=== PATIENT | male | born 1965 | race Caucasian/White ===

== ENCOUNTER 2020-10-06 08:07 | Outpatient (RCR) | payer BC, SELFPAY | END 2020-10-23 15:15 | disposition home or self-care (01) | LOC: HO.WCC 08:07 | PROVIDERS: PCP Family Medicine; Visit Provider Physician Assistant | DX: E11.622 Type 2 diabetes mellitus with other skin ulcer (principal); L89.893 Pressure ulcer of other site, stage 3; E11.40 Type 2 diabetes mellitus with diabetic neuropathy, unspecified; E11.610 Type 2 diabetes mellitus with diabetic neuropathic arthropathy; R60.9 Edema, unspecified; I10 Essential (primary) hypertension; Z79.4 Long term (current) use of insulin; Z87.891 Personal history of nicotine dependence | CPT/HCPCS: 11042; 29580; 99212 ==

== ENCOUNTER 2022-06-04 13:54 | Outpatient (RCR) | payer BC, SELFPAY ==
[2022-07-08 13:34] LABS: MANUAL DIFF FLAG NO
[2022-07-08 14:01] LABS: Basophils Absolute Auto 0.1 X10*3/uL (0.0-0.2); Basophils Percent Auto 1.1 % (0-2); Eosinophils Absolute Auto 0.3 X10*3/uL (0.0-0.4); Eosinophils Percent Auto 3.6 % (0-4); Hematocrit 42.9 % (42.0-52.0); Hemoglobin 14.4 g/dl (14.0-18.0); Imm Gran Abs Auto 0.06 X10*3/uL (0.00-0.03); Imm Gran Pct Auto 0.6 % (0.0-0.4); Lymphocytes Absolute Auto 2.5 X10*3/uL (1.2-4.9); Lymphocytes Percent Auto 26.2 % (20-40); Mean Corpuscular HGB Conc 33.6 g/dl (31.0-36.0); Mean Corpuscular Hemoglobin 29.1 pg (27.0-33.0); Mean Corpuscular Volume 86.8 fL (80.0-98.0); Mean Platelet Volume 9.9 fL (9.4-12.4); Monocytes Absolute Auto 0.7 X10*3/uL (0.1-1.2); Monocytes Percent Auto 7.8 % (2-11); Neutrophils Absolute Auto 5.8 x10*3/uL (2.0-8.3); Neutrophils Percent Auto 60.7 % (45-73); Platelet Count 266 X10*3/uL (160-400); Red Blood Count 4.94 X10*6/uL (4.60-5.80); Red Cell Distribution Width 13.5 % (11.0-16.0); White Blood Count 9.5 X10*3/uL (4.8-10.8)
[2022-07-08 14:17] LABS: Anion Gap 18 (12-20); Blood Urea Nitrogen 13 mg/dL (9-16); C Reactive Protein 1.51 mg/dL (< or = 0.50); Calcium 9.3 mg/dL (8.4-10.2); Carbon Dioxide 22 mmol/L (22-29); Chloride 100 mmol/L (96-108); Estimated Glomerular Filt Rate > 60; Glucose Random 267 mg/dL (60-115); Potassium 4.3 mmol/L (3.3-5.1); Sodium 136 mmol/L (135-145)
[2022-07-08 14:40] LABS: Erythrocyte Sedimentation Rate 12 MM/HR (0-15)
== END 2022-08-24 14:12 | disposition home or self-care (01) ==
LOC: HO.WCC 13:54
PROVIDERS: PCP Family Medicine; Visit Provider Physician Assistant
DX: E11.621 Type 2 diabetes mellitus with foot ulcer (principal); L97.522 Non-pressure chronic ulcer of other part of left foot with fat layer exposed; E11.40 Type 2 diabetes mellitus with diabetic neuropathy, unspecified; I10 Essential (primary) hypertension; L84 Corns and callosities; F12.90 Cannabis use, unspecified, uncomplicated; Z87.891 Personal history of nicotine dependence
CPT/HCPCS: 11042; 36415; 80048; 84134; 85025; 85652; 86140; 97597; 99212

== ENCOUNTER 2023-06-06 14:12 | Outpatient (RCR) | payer BC, SELFPAY ==
--- NOTE | ~2023-06-06 | XR_ITS ---
EXAMINATION: XR TOES, LEFT CLINICAL INFORMATION: Left fifth toe nonhealing wound, rule out osteomyelitis COMPARISON: None available. TECHNIQUE: 3 views of the left fifth toe FINDINGS: The bones are demineralized. Extensive vascular calcifications. Moderate degenerative changes in the toes and in the first metatarsophalangeal joint. External wrapping limits detailed evaluation of the fifth toe. No displaced fracture of the fifth toe. XR/XR toe LT min 2V IMPRESSION: Bones are demineralized. Moderate degenerative changes in the fifth toe. MRI recommended for further evaluation based on the level of clinical concern for osteomyelitis.
== END 2023-06-28 16:10 | disposition home or self-care (01) ==
LOC: HO.WCC 14:12
PROVIDERS: PCP Family Medicine; Visit Provider Physician Assistant
DX: E11.621 Type 2 diabetes mellitus with foot ulcer (principal); L97.522 Non-pressure chronic ulcer of other part of left foot with fat layer exposed; E11.40 Type 2 diabetes mellitus with diabetic neuropathy, unspecified; L84 Corns and callosities; I10 Essential (primary) hypertension; Z79.2 Long term (current) use of antibiotics; Z87.891 Personal history of nicotine dependence
CPT/HCPCS: 11042; 73660; 99212

== ENCOUNTER 2023-08-02 17:01 | Outpatient (REF) | payer BC, SELFPAY ==
--- NOTE | ~2023-08-02 | MR_ITS ---
EXAMINATION: MRI FOOT WITHOUT AND WITH CONTRAST, LEFT CLINICAL INFORMATION: Wound, evaluate for osteomyelitis. COMPARISON: Radiographs 06/13/2023. TECHNIQUE: MRI without and with intravenous administration of 10 mL of Gadavist is performed on the left foot. FINDINGS: Probable shallow ulcer at the lateral aspect of the 5th toe with mild edema/enhancement of the subcutaneous fat extending dorsally which may represent cellulitis. There is no abscess. There are no underlying cortical or marrow changes to suggest osteomyelitis. Nonspecific subcutaneous edema along the dorsum of the foot. These fatty atrophy of the intrinsic muscles. Mild degenerative changes of the 1st MTP joint and 1st interphalangeal joint. No acute osseous abnormality. MR/MR foot LT wo/w con IMPRESSION: Probable shallow ulcer at the lateral aspect of the 5th toe with mild cellulitis. No abscess. No evidence of osteomyelitis.
[2023-08-02] MEDS: gadobutroL 10 ML VIAL IVPUSH (18:00)
== END 2023-08-02 17:02 | disposition home or self-care (01) ==
LOC: HO.MRI 17:01
PROVIDERS: PCP Family Medicine; Visit Provider Physician Assistant
DX: L97.522 Non-pressure chronic ulcer of other part of left foot with fat layer exposed (principal)
CPT/HCPCS: 73720; A9585

== ENCOUNTER 2024-04-20 06:44 | Emergency (ER) | payer BC, SELFPAY ==
--- NOTE | ~2024-04-20 | XR_ITS ---
EXAMINATION: XR LEFT FOOT XR LEFT TIBIA/FIBULA CLINICAL INFORMATION: Pain. Evaluate for osteomyelitis. COMPARISON: 08/02/2023 TECHNIQUE: AP, lateral and oblique views of the left foot were obtained. AP and lateral views of the left tibia and fibula were obtained. FINDINGS: Left foot: Decreased bone mineralization. Diffuse interphalangeal joint space narrowing. Mild degenerative changes of the first MTP joint. No displaced fracture. No destructive bone changes or periosteal reaction. Small posterior and plantar calcaneal spurs. Vascular calcifications are present. Left tibia/fibula: There is normal alignment. No displaced fracture. No destructive bone changes. There is soft tissue swelling and edema of the medial lower leg. XR/XR foot LT min 3V IMPRESSION: No acute abnormality.
--- NOTE | ~2024-04-20 | XR_ITS ---
EXAMINATION: XR LEFT FOOT XR LEFT TIBIA/FIBULA CLINICAL INFORMATION: Pain. Evaluate for osteomyelitis. COMPARISON: 08/02/2023 TECHNIQUE: AP, lateral and oblique views of the left foot were obtained. AP and lateral views of the left tibia and fibula were obtained. FINDINGS: Left foot: Decreased bone mineralization. Diffuse interphalangeal joint space narrowing. Mild degenerative changes of the first MTP joint. No displaced fracture. No destructive bone changes or periosteal reaction. Small posterior and plantar calcaneal spurs. Vascular calcifications are present. Left tibia/fibula: There is normal alignment. No displaced fracture. No destructive bone changes. There is soft tissue swelling and edema of the medial lower leg. XR/XR tibia fibula LT 2V IMPRESSION: No acute abnormality.
[2024-04-20 07:03] VITALS: BP 145/71; PULSE 93; RESP 18; TEMP 36.9; O2SAT 95; BMI 41.2
[2024-04-20 07:39] LABS: MANUAL DIFF FLAG NO
[2024-04-20 07:41] LABS: Basophils Absolute Auto 0.1 X10*3/uL (0.0-0.2); Basophils Percent Auto 0.5 % (0-2); Eosinophils Absolute Auto 0.1 X10*3/uL (0.0-0.4); Eosinophils Percent Auto 0.4 % (0-4); Hematocrit 39.3 % (42.0-52.0); Hemoglobin 13.5 g/dl (14.0-18.0); Imm Gran Abs Auto 0.05 X10*3/uL (0.00-0.03); Imm Gran Pct Auto 0.4 % (0.0-0.4); Lymphocytes Absolute Auto 1.7 X10*3/uL (1.2-4.9); Lymphocytes Percent Auto 13.7 % (20-40); Mean Corpuscular HGB Conc 34.4 g/dl (31.0-36.0); Mean Corpuscular Hemoglobin 29.7 pg (27.0-33.0); Mean Corpuscular Volume 86.6 fL (80.0-98.0); Mean Platelet Volume 9.6 fL (9.4-12.4); Monocytes Absolute Auto 1.2 X10*3/uL (0.1-1.2); Neutrophils Absolute Auto 9.2 x10*3/uL (2.0-8.3); Platelet Count 226 X10*3/uL (160-400); Red Blood Count 4.54 X10*6/uL (4.60-5.80); Red Cell Distribution Width 13.6 % (11.0-16.0); White Blood Count 12.3 X10*3/uL (4.8-10.8)
--- NOTE | 2024-04-20 07:54 | ED.GENADULT ---
HPI - General Adult General Chief complaint: Wound/Laceration Stated complaint: left foot laceration/diabetic has fever Time Seen by Provider: 04/20/24 07:09 Source: patient, RN notes reviewed and old records reviewed Mode of arrival: ambulatory History of Present Illness ED Provider: Amber Michaels PA-C HPI narrative: 58-year-old male with past medical history of diabetes presenting to the ED complaining of left great toe wound x 2 days and fever T-max 102.5 degrees last night. Patient believes callus/blister popped open while in his pool a few days ago. Admits to taking antipyretics yesterday, denies taking anything today. Also reports LLE increasing redness. Denies chills, SOB, CP, calf pain, known injury/trauma or fall Related Data Previous Rx's ?Medication ?Instructions ?Recorded cephalexin 500 mg capsule 500 mg PO QID 7 days #28 caps 04/20/24 doxycycline hyclate 100 mg tablet 100 mg PO BID 7 days #14 tabs 04/20/24 Allergies Allergy/AdvReac Type Severity Reaction Status Date / Time No Known Allergies Allergy Verified 04/20/24 07:04 [No Known Allergies*] Review of Systems Review of Systems: Constitutional: No Fever, No Chills ENT/Mouth: No Ear Pain, No Nasal Congestion, No sore throat, No Rhinorrhea, No Swallowing Difficulty Cardiovascular: No Chest Pain, No SOB Respiratory: No Cough Gastrointestinal: No Nausea, No Vomiting, No Abdominal pain Musculoskeletal: + joint pain, No Myalgias, No Joint Swelling Skin: + Skin Lesions, No rash Neuro: No Weakness, No Numbness, No Paresthesias Yes all other systems are reviewed and are negative Constitutional: Constitutional: Reports as per [facility] Past Medical History Attestation statement: The following information was validated with the patient. Source: old records reviewed Social History Social History Advance Directives: No Advance Directives Information Provided: Yes Physical Exam ED Vital Signs: Vital Signs - 24 hr 04/20/24 07:03 04/20/24 09:00 Temperature 98.5 F 98.5 F Pulse Rate 93 93 Respiratory Rate 18 18 Blood Pressure 145/71 H 145/71 H Pulse Oximetry 95 95 Oxygen Delivery Method Room Air Room Air BMI result Body Mass Index 41.2 Const General: cooperative, healthy appearing and no acute distress Orientation/consciousness: patient oriented x3 Limitations: no limitations HENMT Head: Yes normal to inspection and Yes atraumatic Ears: hearing grossly normal bilaterally General nose exam: Normal external nose present Face and sinus: Yes normal facial exam Eyes General: appearance normal, both eyes and all related structures EOM: EOMs intact bilaterally Neck Neck: Yes normal visual inspection and Yes no meningeal signs Resp Effort & Inspection: normal respiratory effort and no respiratory distress Cardio Rate: regular rate GI Inspection: Yes normal to inspection Palpation (GI): Soft to palpation, nontender, no guarding and not rigid General: Yes no CVA tenderness Back/Spine/Pelvis Back: no CVA tenderness Skin Rashes: no rashes Neuro General: patient oriented x3, tone normal and no meningeal signs Cranial nerves: Yes CN's II-XII intact bilaterally Gait exam (Neuro): Normal gait present Extrem Other: Please refer to images above. Open wound to left great toe plantar aspect. appears split open skin from callus. No active drainage, fluctuance or induration. +LLE erythema and warmth. Mildly tender. No streaking. Not circumferential Course Course Course Narrative: -0759--mild leukocytosis of 12.3. H and H is stable -glucose 286, no anion gap 0932--XR tibia fibula LT 2V IMPRESSION: No acute abnormality. XR foot LT min 3V IMPRESSION: No acute abnormality. Results discussed with patient including worrisome signs and symptoms and strict return precautions, and when to return to the emergency department. They verbalized understanding and feel safe for discharge at this time. Medical Decision Making Medical Decision Making MDM Narrative: 58-year-old male with past medical history of diabetes presenting to the ED complaining of left great toe wound x 2 days and fever T-max 102.5 degrees last night. On exam vital signs stable, NAD, nontoxic appearing please refer to images above. + open wound to left great toe with BRADLEY erythema/warmth consistent with cellulitis. No crepitus. Lower suspicion for osteomyelitis, DVT, abscess. Low suspicion for severe sepsis Plan: Labs, x-ray Please refer to course for remaining clinical decision making, interpretation of labs/imaging results, and discussions with consultants and/or family members. Differential Diagnosis Differential Diagnoses: The differential diagnosis associated with the presentation includes As above Admission/Observation Consideration of admission/observation: Escalation of care including admission/observation considered Lab Data MDM Lab Attestation statement: I reviewed the patient's lab results. 04/20/24 07:35 04/20/24 07:35 Labs: Lab Results 04/20/24 Range/Units 07:35 WBC 12.3 H (4.8-10.8) X10*3/uL RBC 4.54 L (4.60-5.80) X10*6/uL Hgb 13.5 L (14.0-18.0) g/dl Hct 39.3 L (42.0-52.0) % MCV 86.6 (80.0-98.0) fL MCH 29.7 (27.0-33.0) pg MCHC 34.4 (31.0-36.0) g/dl RDW 13.6 (11.0-16.0) % Plt Count 226 (160-400) X10*3/uL MPV 9.6 (9.4-12.4) fL Immature Gran % (Auto) 0.4 (0.0-0.4) % Neut % (Auto) 75.0 H (45-73) % Lymph % (Auto) 13.7 L (20-40) % Mcculloch % (Auto) 10.0 (2-11) % Eos % (Auto) 0.4 (0-4) % Baso % (Auto) 0.5 (0-2) % Lymph # (Auto) 1.7 (1.2-4.9) X10*3/uL Mcculloch # (Auto) 1.2 (0.1-1.2) X10*3/uL Eos # (Auto) 0.1 (0.0-0.4) X10*3/uL Baso # (Auto) 0.1 (0.0-0.2) X10*3/uL Abs Immat Gran (auto) 0.05 H (0.00-0.03) X10*3/uL Absolute Neuts (auto) 9.2 H (2.0-8.3) x10*3/uL Absolute Nucleated RBC 0.000 (0.0-0.012) X10*3/uL Nucleated RBC % (auto) 0.0 (0.0-0.2) /100WBC Sodium 138 (135-145) mmol/L Potassium 4.7 (3.3-5.1) mmol/L Chloride 101 (96-108) mmol/L Carbon Dioxide 27 (22-29) mmol/L Anion Gap 15 (12-20) BUN 22 H (9-16) mg/dL Creatinine 1.02 (0.5-1.4) mg/dL Estim Creat Clear Calc 110.2 Estimated GFR > 60 Random Glucose 286 H (60-115) mg/dL Calcium 9.9 D (8.4-10.2) mg/dL Total Bilirubin 0.7 (0.0-1.0) mg/dL Direct Bilirubin 0.3 (0.0-0.5) mg/dL AST 13 (5-37) U/L ALT 19 (0-40) U/L Alkaline Phosphatase 79 (39-117) U/L B-Natriuretic Peptide 21 (<100) pg/mL Total Protein 6.9 (6.5-8.0) g/dL Albumin 3.8 (3.5-5.0) g/dL Independent Interpretation I performed an independent interpretation of an: Plain X-Ray Radiology Impression Discussion of test interpretation with radiology: I have reviewed the radiologist's reading. External Record Review External record reviewed: Inpatient record, Office record, Outpatient record, Prior outpatient labs, Prior outpatient radiology, Primary care record and Outside ED record Tests considered The following testing was considered but not selected: As above Prescription Management I considered prescription management with: Pain Medication and Antibiotic Chronic Conditions Patient?s care impacted by: Diabetes Discharge Plan Discharge Clinical Impression: Cellulitis Patient Disposition: Home, Self-Care Instructions: Cellulitis (DC) Additional Instructions: Your blood work and x-rays were reassuring Doxycycline and Keflex antibiotics please take as prescribed Please take Tylenol Motrin as needed for pain Please keep a close eye on the area if becomes red, increasing in size, you have persistent fever speech return to the ED immediately Please be re-evaluated in 3 days Follow-up with wound care Prescriptions: New cephalexin 500 mg capsule 500 mg PO QID 7 Days Qty: 28 0RF doxycycline hyclate 100 mg tablet 100 mg PO BID 7 Days Qty: 14 0RF Referrals: [facility] [place] Wound Care Management [Provider Group] Rachel Alberto MD [Primary Care Provider] - 3 days Stand Alone Forms: Work/School Release Interventions: ED Discharge Assessment Last Done: 04/20/24 09:00 Discharge Date/Time: 04/20/24 09:01 Print Language: Macedonian
[2024-04-20 07:58] LABS: Alanine Aminotransferase 19 U/L (0-40); Albumin Level 3.8 g/dL (3.5-5.0); Alkaline Phosphatase 79 U/L (39-117); Anion Gap 15 (12-20); Aspartate Amino Transferase 13 U/L (5-37); Bilirubin Direct 0.3 mg/dL (0.0-0.5); Bilirubin Total 0.7 mg/dL (0.0-1.0); Blood Urea Nitrogen 22 mg/dL (9-16); Calcium 9.9 mg/dL (8.4-10.2); Carbon Dioxide 27 mmol/L (22-29); Chloride 101 mmol/L (96-108); Creatinine Clr Calc Pharmacy 110.2; Estimated Glomerular Filt Rate > 60; Glucose Random 286 mg/dL (60-115); Potassium 4.7 mmol/L (3.3-5.1); Sodium 138 mmol/L (135-145); Total Protein 6.9 g/dL (6.5-8.0)
[2024-04-20 08:01] LABS: B Type Natriuretic Peptide 21 pg/mL (<100)
[2024-04-20 09:00] VITALS: BP 145/71; PULSE 93; RESP 18; TEMP 36.9; O2SAT 95
== END 2024-04-20 09:01 | disposition home or self-care (01) ==
PROVIDERS: Physician Assistant; Emergency Provider Emergency Medicine; PCP Family Medicine
DX: L03.032 Cellulitis of left toe (principal); R50.9 Fever, unspecified; E11.9 Type 2 diabetes mellitus without complications
CPT/HCPCS: 36415; 73590; 73630; 80048; 80076; 83880; 85025; 99282; 99283

== ENCOUNTER 2024-04-26 09:52 | Outpatient (RCR) | payer BC, SELFPAY | END 2024-08-17 13:59 | disposition home or self-care (01) | LOC: HO.WCC 09:52 | PROVIDERS: PCP Family Medicine; Visit Provider Surgery | DX: Z09 Encounter for follow-up examination after completed treatment for conditions other than malignant neoplasm (principal); L84 Corns and callosities; E11.610 Type 2 diabetes mellitus with diabetic neuropathic arthropathy; E11.40 Type 2 diabetes mellitus with diabetic neuropathy, unspecified; Z86.31 Personal history of diabetic foot ulcer | CPT/HCPCS: 11042; 97597; 99213 ==